=== PATIENT | male | born 1980 | race Hispanic/Latino ===

== ENCOUNTER 2019-09-10 14:38 | Emergency (ER) | payer MEDICARE ==
[2019-09-10] MEDS ORDERED: SODIUM CHLORIDE 0.9% 1000 ML 1,000 ML IV ONE (15:19)
[2019-09-10] MEDS ORDERED: charcoal activated SOLUTION 25 GM/120 ML PO ONE (15:19)
--- NOTE | 2019-09-10 15:52 | Emergency Department Report ---
History of Present Illness - General Chief Complaint: Overdose Stated Complaint: POSS OD Time Seen by Provider: 09/10/19 15:07 Source: EMS Mode of arrival: Stretcher Limitations: Altered Mental Status - History of Present Illness Initial Comments: Patient is a 39-year-old F [place] male with a past medical history of mental health issues as well as substance abuse who was found at his day group to be altered. Patient was found lying on the floor staring off into space. Patient's is occasionally talkative and then sometimes seems catatonic. When the patient is speaking he does not appear to be completely lucid and is exhibiting some evidence of paranoia. Patient has a medication pill pack which includes Benadryl and amantadine. Approximately 80 of his Benadryl and 20 of his amantadine appear to be missing. Intent: unwilling to say (or unable) Associated Symptoms: paranoia, hallucinations - Related Data Allergies Allergy/AdvReac Type Severity Reaction Status Date / Time No Known Allergies Allergy Unverified 09/10/19 15:37 ED Review of Systems ROS: Stated complaint: POSS OD Other details as noted in HPI Comment: All other systems reviewed and negative ED Past Medical Hx - Past Medical History Previous Medical History?: Yes Hx Psychiatric Treatment: Yes (Schizo) - Surgical History Additional Surgical History: Unknown ED Physical Exam - General Limitations: Altered Mental Status General appearance: alert, other (Patient seems to be avoiding eye contact and is responding to internal stimuli) - Head Head exam: Present: atraumatic, normocephalic - Eye Eye exam: Present: normal appearance, PERRL, EOMI - ENT ENT exam: Present: mucous membranes moist - Neck Neck exam: Present: normal inspection - Respiratory Respiratory exam: Present: normal lung sounds bilaterally. Absent: respiratory distress, wheezes, rales, rhonchi - Cardiovascular Cardiovascular Exam: Present: regular rate, normal rhythm, normal heart sounds. Absent: systolic murmur, diastolic murmur, rubs, gallop - GI/Abdominal GI/Abdominal exam: Present: soft, normal bowel sounds. Absent: distended, tende rness, guarding, rebound - Rectal Rectal exam: Present: deferred - Extremities Exam Extremities exam: Present: normal inspection - Back Exam Back exam: Present: normal inspection - Neurological Exam Neurological exam: Present: alert, altered - Psychiatric Psychiatric exam: Present: normal affect, normal mood - Skin Skin exam: Present: warm, dry, intact, normal color. Absent: rash ED Course Vital Signs 09/10/19 09/10/19 09/10/19 14:59 15:30 15:46 Temperature 97.6 F Pulse Rate 83 89 105 H Respiratory 18 20 18 Rate Blood Pressure 141/99 134/93 Blood Pressure 125/86 [Left] O2 Sat by Pulse 98 98 98 Oximetry 09/10/19 09/10/19 09/10/19 16:00 16:16 16:30 Temperature Pulse Rate 80 75 89 Respiratory 22 12 14 Rate Blood Pressure 125/94 125/94 121/80 Blood Pressure [Left] O2 Sat by Pulse 99 97 94 Oximetry 09/10/19 09/10/19 09/10/19 16:46 17:00 17:15 Temperature Pulse Rate 92 H 70 74 Respiratory 16 28 H 17 Rate Blood Pressure 121/80 130/86 121/80 Blood Pressure [Left] O2 Sat by Pulse 98 98 98 Oximetry 09/10/19 09/10/19 09/10/19 17:30 17:45 18:00 Temperature Pulse Rate 68 64 65 Respiratory 15 18 19 Rate Blood Pressure 119/82 130/86 123/88 Blood Pressure [Left] O2 Sat by Pulse 98 100 99 Oximetry 09/10/19 09/10/19 09/10/19 18:15 18:30 18:45 Temperature Pulse Rate 80 63 64 Respiratory 20 15 14 Rate Blood Pressure 123/88 117/81 117/81 Blood Pressure [Left] O2 Sat by Pulse 98 99 99 Oximetry - Reevaluation(s) Reevaluation #1: 09/10/19 15:53 Poison control is been consulted and suggested a 6-hour monitoring time. They also suggest following the QT with every 2 hour EKGs. Reevaluation #2: 09/10/19 16:46 Patient was witnessed climbing over the rail of his bed and he did fall onto the ground. Patient suffered no injury. Patient talking about seeing aliens in his backyard. Patient states he was trying to get to the other room. Patient was helped back into bed. Placed in two-point restraints. Reevaluation #3: 09/10/19 20:43 Repeat EKG shows that the patient has not developed any prolongation of his QT. Rate is 61 sinus rhythm. [place] and intervals are normal. The QT is 434. There is no ST segment elevation or depression. Time of interpretation is 2040 ED Medical Decision Making - Lab Data Result diagrams: 09/10/19 15:48 09/10/19 15:48 - EKG Data -: EKG Interpreted by Me EKG shows normal: sinus rhythm - EKG Data 09/10/19 15:53 EKG shows sinus rhythm a rate of 80. Bristow is normal intervals are normal at this time. QT is 402. There appears to be evidence of LVH. There is no ST segment elevation or depressions present. Time of interpretation of 1520 Critical care attestation.: If time is entered above; I have spent that time in minutes in the direct care of this critically ill patient, excluding procedure time. ED Disposition Condition: Stable
[2019-09-10 16:29] LABS: Basophils % (Auto) 0.1 % (0.0-1.8); Eosinophils % (Auto) 0.1 % (0.0-4.3); Hematocrit 45.2 % (35.5-45.6); Hemoglobin 15.1 gm/dl (11.8-15.2); Lymphocytes # (Auto) 0.7 K/mm3 (1.2-5.4); Lymphocytes % (Auto) 10.3 % (13.4-35.0); Mean Corpuscular HGB Conc 33 % (32-34); Mean Corpuscular Volume 95 fl (84-94); Monocytes # (Auto) 0.6 K/mm3 (0.0-0.8); Monocytes % (Auto) 8.9 % (0.0-7.3); Platelet Count 262 K/mm3 (140-440); Red Blood Count 4.78 M/mm3 (3.65-5.03)
[2019-09-10 16:46] LABS: Alanine Aminotransferase 23 units/L (7-56); Albumin 4.7 g/dL (3.9-5); BUN/Creatinine Ratio 11; Blood Urea Nitrogen 12 mg/dL (9-20); Calcium 9.3 mg/dL (8.4-10.2); Hemolysis Index 5
[2019-09-10 22:00] LABS: Bilirubin,Urine NEG (Negative); Blood,Urine LG (Negative); Color,Urine Yellow (Yellow); Mucus,Urine 1+ /HPF; Sperm,Urine 1+ /HPF (NP); Urobilinogen,Urine < 2.0 mg/dL (<2.0)
[2019-09-10 22:02] LABS: Amphetamine Screen,Urine PRESUMPTIVE NEGATIVE; Benzodiazepines Screen,Urine PRESUMPTIVE NEGATIVE; Cannabinoid Screen,Urine PRESUMPTIVE NEGATIVE; Cocaine Screen,Urine PRESUMPTIVE NEGATIVE; Methadone Screen,Urine PRESUMPTIVE NEGATIVE; Opiate Screen,Urine PRESUMPTIVE NEGATIVE
--- NOTE | 2019-09-11 13:06 | Consultation ---
History of Present Illness - Reason for Consult Consult date: 09/11/19 Reason for consult: Overdose - History of Present Psychiatric Illness Giovani Cloud is a 39y/o male patient who was brought to the ER for overdose. During my interview with the patient today he was lying in bed. Awake. A/o x 3. He makes intermittent eye contact. He seems irritable at times. He is evasive. He states "I made a mistake and took too many pills. I'm not going to do that anymore. I wasn't trying to kill myself." The patient states, "I was having muscle spasms and wanted it to stop." He starts moving his neck back and forth. When asking about hallucinations, the patient initially pauses, then says "I saw something once back in 2001 but not recently." He first denies doing any illicit drugs, then he says "I wasn't positive this time, but maybe last time." Then he says "I did crack about a month ago, and marijuana sometimes." He says he has a history of "schizophrenia and takes "Invega." The patient states, "I got to get out of here." When asking the patient of his behavior while being in the ER. He became upset and stated, "seems like yall just want me to be here. I'm telling you the truth." PAST PSYCHIATRIC HISTORY: Diagnoses: Bipolar and schizophrenia Suicide attempts or Self-harm behavior: Denies Prior psychiatric hospitalizations: yes Substance Abuse history: Crack Previous psychiatric medications tried: Invega Outpatient treatment: Yes PAST MEDICAL HISTORY: None reported Family Psychiatric History None reported or documented SOCIAL HISTORY Marital Status: Single Living Arrangements: alf Employment Status: Unemployed Access to guns/weapons: Denies Education: GED History of Abuse: Crack ROS: Constitutional: Negative for weight loss ENT: Negative for stridor Respiratory: Negative for cough or hemoptysis All other systems reviewed and are negative MENTAL STATUS General Appearance: Dressed appropriately Behavior: Irritable, evasive at times Mood: Affect: Congruent Thought Process: Goal-directed Speech: Normal tone and pace Suicidal Ideation: Denies Homicidal Ideation: Denies Hallucinations: Denies Delusions: None elicited Insight and Judgment: Fair Memory/Cognition: Fair Diagnoses: Overdose Plan Risperidone 0.5mg po BID Doxepin 10mg po qhs Depakote DR 125mg po BID Geodon 10mg IM q4h prn agitation Medical: Per primary Sitter: Defer to primary Disposition: The patient meets the requirement for acute hospitalization at this time. He may transfer to an acute psychiatric facility once medically cleared. Will follow until the patient is transferred or condition improves Medications and Allergies Allergies Allergy/AdvReac Type Severity Reaction Status Date / Time No Known Allergies Allergy Unverified 09/10/19 15:37 Home Medications Medication Instructions Recorded Confirmed Last Taken Type amantadine [Symmetrel] 100 mg PO BID 09/10/19 09/10/19 Unknown History Mental Status Exam - Vital signs Last Vital Signs Temp 97.6 F 09/10/19 14:59 Pulse 66 09/11/19 08:01 Resp 17 09/11/19 08:01 BP 111/74 09/11/19 08:01 Pulse Ox 97 09/11/19 06:56 Results Result Diagrams: 09/10/19 15:48 09/10/19 15:48 Abnormal lab results 09/10/19 09/10/19 09/10/19 Range/Units 15:48 15:48 15:48 MCV 95 H (84-94) fl Lymph % (Auto) 10.3 L (13.4-35.0) % [place] % (Auto) 8.9 H (0.0-7.3) % Lymph # 0.7 L (1.2-5.4) K/mm3 Seg Neutrophils % 80.6 H (40.0-70.0) % Carbon Dioxide 19 L (22-30) mmol/L AST 42 H (5-40) units/L Urine WBC (Auto) (0.0-6.0) /HPF Salicylates < 0.3 L (2.8-20.0) mg/dL Acetaminophen (10.0-30.0) ug/mL 09/10/19 09/10/19 Range/Units 15:48 21:40 MCV (84-94) fl Lymph % (Auto) (13.4-35.0) % [place] % (Auto) (0.0-7.3) % Lymph # (1.2-5.4) K/mm3 Seg Neutrophils % (40.0-70.0) % Carbon Dioxide (22-30) mmol/L AST (5-40) units/L Urine WBC (Auto) 9.0 H (0.0-6.0) /HPF Salicylates (2.8-20.0) mg/dL Acetaminophen < 5.0 L (10.0-30.0) ug/mL All other labs normal.
[2019-09-11] MEDS ORDERED: ZIPRASIDONE MESYLATE 20 MG VIAL IM PRN (13:14)
[2019-09-11] MEDS ORDERED: DIVALPROEX DR 125 MG TAB PO SCH (14:00)
[2019-09-11] MEDS ORDERED: risperiDONE 0.25 MG TAB PO SCH (14:00)
[2019-09-11 14:29] VITALS: BP 114/84
[2019-09-11] MEDS ORDERED: DOXEPIN 10 MG CAP PO SCH (22:00)
== END 2019-09-11 17:03 ==
LOC: ED 14:38
DX: F20.89 Other schizophrenia (principal); T45.0X1A Poisoning by antiallergic and antiemetic drugs, accidental (unintentional), initial encounter; Y92.89 Other specified places as the place of occurrence of the external cause
CPT/HCPCS: 36415; 80053; 80307; 81001; 85025; 87086; 93005; 93010; 99285; J7030; 80320; G0480